=== PATIENT | male | born 1965 | race Caucasian/White ===

== ENCOUNTER 2021-01-25 11:59 | Emergency (ER) | payer SELFPAY ==
[2021-01-25 12:01] VITALS: BP 152/105; PULSE 95; RESP 18; TEMP 36.4; O2SAT 98
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
[2021-01-25 13:46] VITALS: BP 146/104; PULSE 62; RESP 16; O2SAT 99
== END 2021-01-25 13:47 | disposition home or self-care (01) ==
PROVIDERS: Emergency Provider Emergency Medicine
DX: S39.012A Strain of muscle, fascia and tendon of lower back, initial encounter (principal); X58.XXXA Exposure to other specified factors, initial encounter; Y93.55 Activity, bike riding
CPT/HCPCS: 99283

== ENCOUNTER 2022-06-12 08:40 | Emergency (ER) | payer OTHER, SELFPAY ==
[2022-06-12 08:54] VITALS: BP 178/112; PULSE 80; RESP 16; TEMP 36.4; O2SAT 100
--- NOTE | 2022-06-12 09:20 | ED.EXTPRO ---
HPI - Extremity Problem General Chief complaint: Extremity Problem,Nontraumatic Stated complaint: neck/rt arm pain Time Seen by Provider: 06/12/22 09:20 Source: patient and RN notes reviewed Mode of arrival: ambulatory Limitations: no limitations History of Present Illness HPI Narrative: 57-year-old male presents with concern for right shoulder, arm pain. Reports symptoms started 1 month ago with some neck pain without injury. He reports it has moved to his shoulder and arm. Reports his thumb is painful and tip of it feels numb. He denies any injury or trauma to the neck, shoulder, arm. He denies tenderness, midline cervical tenderness. He denies difficulty with range of motion of the neck, shoulder, arm, hand. He denies any swelling, redness, warmth, open skin or rash. He reports he has been taking ibuprofen without relief. He denies chest pain, shortness of breath MD Complaint: extremity pain Related Data Allergies Allergy/AdvReac Type Severity Reaction Status Date / Time No Known Allergies Allergy Mild Verified 06/12/22 08:50 Review of Systems Review of Systems: CONSTITUTIONAL: Denies malaise, chills, sweats, or fever. CARDIOVASCULAR: Denies chest pain, palpitations, or edema. RESPIRATORY: Denies cough or dyspnea. SKIN: Denies rash or itching, bruising, redness, swelling. MUSCULOSKELETAL: Reports mild neck pain, right shoulder pain, right arm pain, right thumb pain NEUROLOGIC: Denies weakness. Reports tingling in the tip of the right thumb All systems reviewed & are unremarkable except as noted in HPI and below PMFSH Comments At time of signature, agree with nursing past medical, surgical, social and family history. There is no relevant family history pertinent to the presenting complaint Exam Narrative: GENERAL: Well-appearing, well-nourished, and in no acute distress. HEAD: Normocephalic, atraumatic. EYES: PERRLA, conjunctivae clear NECK: Supple. CHEST: Speaks in full sentences. No respiratory distress. HEART: Regular rate and rhythm. Normal and equal peripheral pulses. EXTREMITIES: Right shoulder, arm, hand, digits have normal strength and sensation, normal range of motion. No edema or ecchymosis. 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 Normal sensation with sensitivity to light touch and pain. No point tenderness, no midline cervical tenderness. No open wounds, no skin tenting, no devitalized tissue or atrophy, no trophic changes, no obvious deformity, alignment normal, nearby joints and structures intact. Distal pulses palpable and equal bilaterally, skin warm, dry, pink. Capillary refill less than 3 seconds. SKIN: Warm, dry, no rash. NEURO: Alert and oriented x3. PSYCH: Normal mood and affect Course Course Emergency Course: Patient is aware of diagnosis, understands and agrees to treatment plan. Anticipatory guidance given. Patient agrees to follow-up as directed and is aware of reasons to seek care at the emergency department. Portions of this record may have been created with voice recognition software Level of Care: Express Care Visit Vital Signs Vital signs: Vital Signs Temperature 97.6 F 06/12/22 08:54 Pulse Rate 80 06/12/22 08:54 Respiratory Rate 16 06/12/22 08:54 Blood Pressure 178/112 H 06/12/22 08:54 Pulse Oximetry 100 06/12/22 08:54 Temperature 97.6 F 06/12/22 08:54 Pulse Rate 80 06/12/22 08:54 Respiratory Rate 16 06/12/22 08:54 Blood Pressure 178/112 H 06/12/22 08:54 Pulse Oximetry 100 06/12/22 08:54 Reviewed. MDM - Extremity (Nontraumatic) MDM Narrative Medical decision making narrative: Patients pain is consistent with musculoskeletal etiology. No signs of vascular compromise on exam. Compartments and tissues are soft without signs of compartment syndrome. Pain is felt appropriate for further evaluation on an outpatient basis. Critical Care Time Critical Care Time Critical Care Time: No Discharge Plan Discharge Clini
== END 2022-06-12 09:34 | disposition home or self-care (01) ==
PROVIDERS: Emergency Provider Nurse Practitioner
DX: M54.12 Radiculopathy, cervical region (principal)
CPT/HCPCS: 99213; G0463

== ENCOUNTER 2022-06-19 10:08 | Emergency (ER) | payer OTHER, SELFPAY ==
--- NOTE | ~2022-06-19 | XR_ITS ---
Cervical Spine: AP, oblique, lateral, open-mouth views Clinical History: Pain Findings: No fracture identified. Minimal grade 1 anterolisthesis of C4 over C5 noted. There is mild degenerative disc change at C5-C6 and C6-C7. There is mild uncovertebral degenerative change at C5-C6 and C6-C7. Pre-vertebral soft tissues are unremarkable. Impression: Minimal grade 1 anterolisthesis of C4 over C5. [id number] degenerative change, as detailed above. Reviewed, dictated and finalized at location [facility] Impression: Minimal grade 1 anterolisthesis of C4 over C5. [id number] degenerative change, as detailed above.
[2022-06-19 10:25] VITALS: BP 184/107; PULSE 81; RESP 18; TEMP 36.7; O2SAT 99
--- NOTE | 2022-06-19 10:58 | ED.EXTPRO ---
HPI - Extremity Problem General Chief complaint: Extremity Injury, Upper Stated complaint: rt shoulder pain Time Seen by Provider: 06/19/22 10:25 Source: patient Mode of arrival: ambulatory Limitations: no limitations History of Present Illness HPI Narrative: Mr. Parkinson is a 57-year-old male patient presenting to the clinic today with complaints of right shoulder pain. He reports he was seen in the urgent care last week and was given prescription for prednisone and a muscle relaxer. States that the he was diagnosed with a pinched nerve at that time. Prednisone did help but the muscle relaxers not bring him much relief. He is currently out of the prednisone and the pain is coming back. Rates pain currently 8/10 and states that he is having numbness in his right thumb. He denies any known injury. 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 Patient denies any fever, chills, rash, headache, visual changes, dizziness, cough, runny nose, sore throat, shortness of breath, chest pain, palpitations, nausea, vomiting, diarrhea, constipation, abdominal pain, or any urinary issues. PMFSH Comments At the time of my signature, I reviewed and agree with the nursing past medical, surgical, social, and family history. There is no relevant family history pertinent to the patient complaint. Exam Narrative: General: Well-developed, well nourished, in no apparent distress Head: Normocephalic, atraumatic. Cardio: Regular rate and rhythm, s1 and s2 normal, no murmur appreciated. Resp: Clear to auscultation bilaterally, no rhonchi, rales, wheezing or rubs. Musculoskeletal: No deformity, mild tender to palpation over the right trapezius musculature, right shoulder with grossly normal range of motion, pain radiating into the right arm from the neck, muscle strength strong and equal, bilateral hand grasps strong and equal, negative Tinel's/Phalens, peripheral pulse strong, no edema, no cyanosis, normal gait and station Course Course Emergency Course: Portions of this record may have been created with voice recognition software. Level of Care: Express Care Visit Vital Signs Vital signs: Vital Signs Temperature 36.7 C 06/19/22 10:25 Pulse Rate 81 06/19/22 10:25 Respiratory Rate 18 06/19/22 10:25 Blood Pressure 184/107 H 06/19/22 10:25 Pulse Oximetry 99 06/19/22 10:25 Oxygen Delivery Room Air 06/19/22 10:25 Temperature 36.7 C 06/19/22 10:25 Pulse Rate 81 06/19/22 10:25 Respiratory Rate 18 06/19/22 10:25 Blood Pressure 184/107 H 06/19/22 10:25 Pulse Oximetry 99 06/19/22 10:25 Oxygen Delivery Room Air 06/19/22 10:25 Vital signs reviewed MDM - Extremity (Nontraumatic) MDM Narrative Medical decision making narrative: At the time of visit patient is resting comfortably on the exam table. X-ray of the cervical spine was obtained and shows [id number] degenerative disc changes with some slipping of disc to the C4-C5. Will send in prescription for some prednisone and have him follow-up with his doctor as he has a scheduled appointment on June 28. Also discussed patient's high blood pressure in the clinic today and will have him record his blood pressures and follow-up with his PCP regarding this. He is denying any chest pain, shortness of breath, dizziness, headache, or visual changes currently. Differential Diagnosis Differential diagnosis: Likely other (Cervical radiculopathy, carpal tunnel, cervical disc disease, herniation) Imaging Data Radiologist's impression: Imaging Reports Close Cervical Spine X-Ray (Signed) Ubaldo Petty - 06/19/22 [facility] [address] [id number] XRay Report Signed Patient: Henrry Parkinson
== END 2022-06-19 11:09 | disposition home or self-care (01) ==
PROVIDERS: Emergency Provider Nurse Practitioner Family; PCP Family Medicine
DX: M43.12 Spondylolisthesis, cervical region (principal); M50.322 Other cervical disc degeneration at C5-C6 level; M50.323 Other cervical disc degeneration at C6-C7 level
CPT/HCPCS: 72050; 99213; G0463